=== PATIENT | female | born 1985 | race American Indian/Alaskan Native ===

== ENCOUNTER 2021-07-04 16:14 | Emergency (ER) | payer SELFPAY ==
[2021-07-04] MEDS ORDERED: LORazepam 2 MG TAB PO PRN (19:08)
--- NOTE | 2021-07-04 19:42 | Emergency Department Report ---
ED Psych HPI - General Chief Complaint: Psych Stated Complaint: PSYCH Time Seen by Provider: 07/04/21 18:32 Source: patient, EMS Mode of arrival: Ambulatory Limitations: No Limitations - History of Present Illness Initial Comments: 36-year-old female with a psychiatric history presents to the hospital with psychosis and abnormal behavior. Patient was found outside of a gas station reporting that she has snakes in her pants and therefore took off her pants. She states she has been noncompliant with her medications for at least 3 days. She denies suicidal homicidal ideation at this time. When asked what we can do for her today she asked if we can make her normal. She denies physical complaints - Related Data Home Medications Medication Instructions Recorded Confirmed Last Taken LORazepam [Ativan] 2 mg PO BID PRN 07/04/21 07/04/21 07/02/21 Trazodone HCl 50 mg PO QHS 07/04/21 07/04/21 07/02/21 Trileptal 300 mg PO BID 07/04/21 07/04/21 07/02/21 ZyPREXA 5 mg PO QDAY 07/04/21 07/04/21 07/02/21 ZyPREXA 10 mg PO QHS 07/04/21 07/04/21 07/02/21 Allergies Allergy/AdvReac Type Severity Reaction Status Date / Time No Known Allergies Allergy Verified 07/04/21 16:17 ED Review of Systems ROS: Stated complaint: PSYCH Other details as noted in HPI Comment: All other systems reviewed and negative ED Past Medical Hx - Medications Home Medications: Home Medications Medication Instructions Recorded Confirmed Last Taken Type LORazepam [Ativan] 2 mg PO BID PRN 07/04/21 07/04/21 07/02/21 History Trazodone HCl 50 mg PO QHS 07/04/21 07/04/21 07/02/21 History Trileptal 300 mg PO BID 07/04/21 07/04/21 07/02/21 History ZyPREXA 5 mg PO QDAY 07/04/21 07/04/21 07/02/21 History ZyPREXA 10 mg PO QHS 07/04/21 07/04/21 07/02/21 History ED Physical Exam - General Limitations: No Limitations - Other Other exam information: General: No acute distress Head: Atraumatic Eyes: normal appearance ENT: Moist mucous membranes Neck: Normal appearance, no midline tenderness Chest: Clear to auscultation bilaterally CV: Regular rate and rhythm Abdomen: Soft, normal bowel sounds, nontender, nondistended, no rebound or gu arding Back: Normal inspection Extremity: Normal inspection, full range of motion Neuro: Alert O x 3, no facial asymmetry, speech clear, no gross motor sensory deficit Psych: Poor eye contact, withdrawn, endorses auditory hallucinations Skin: No rash ED Course Vital Signs 07/04/21 07/04/21 16:15 17:23 Temperature 98.1 F Pulse Rate 100 H 78 Respiratory 16 Rate Blood Pressure 160/90 128/72 [Left] O2 Sat by Pulse 98 99 Oximetry ED Medical Decision Making - Lab Data Result diagrams: 07/04/21 19:31 07/04/21 19:31 Lab Results 07/04/21 07/04/21 07/04/21 Range/Units 19:31 19:31 19:31 WBC 7.9 (4.5-11.0) K/mm3 RBC 4.73 (3.65-5.03) M/mm3 Hgb 14.0 (10.1-14.3) gm/dl Hct 41.2 (30.3-42.9) % MCV 87 (79-97) fl MCH 30 (28-32) pg MCHC 34 (30-34) % RDW 13.7 (13.2-15.2) % Plt Count 371 (140-440) K/mm3 Lymph % (Auto) 29.8 (13.4-35.0) % [place] % (Auto) 7.9 H (0.0-7.3) % Eos % (Auto) 0.3 (0.0-4.3) % Baso % (Auto) 0.8 (0.0-1.8) % Lymph # (Auto) 2.4 (1.2-5.4) K/mm3 [place]gs # (Auto) 0.6 (0.0-0.8) K/mm3 Eos # (Auto) 0.0 (0.0-0.4) K/mm3 Baso # (Auto) 0.1 (0.0-0.1) K/mm3 Seg Neutrophils % 61.2 (40.0-70.0) % Seg Neutrophils # 4.8 (1.8-7.7) K/mm3 Sodium 138 (137-145) mmol/L Potassium 4.2 (3.6-5.0) mmol/L Chloride 102.2 (98-107) mmol/L Carbon Dioxide 22 (22-30) mmol/L Anion Gap 18 mmol/L BUN 12 (7-17) mg/dL Creatinine 0.9 (0.6-1.2) mg/dL Estimated GFR > 60 ml/min BUN/Creatinine Ratio 13 % Glucose 98 (65-100) mg/dL Calcium 9.8 (8.4-10.2) mg/dL HCG, Qual (Negative) Salicylates 0.5 L (2.8-20.0) mg/dL Acetaminophen (10.0-30.0) ug/mL Plasma/Serum Alcohol (0-0.07) % 07/04/21 07/04/21 07/04/21 Range/Units 19:31 19:31 19:31 WBC (4.5-11.0) K/mm3 RBC (3.65-5.03) M/mm3 Hgb (10.1-14.3) gm/dl Hct (30.3-42.9) % MCV (79-97) fl MCH (28-32) pg MCHC (30-34) % RDW (13.2-15.2) % Plt Count (140-440) K/mm3 Lymph % (Auto) (13.4-35.0) % [place]gs % (Auto) (0.0-7.3) % Eos % (Auto) (0.0-4.3) % Baso % (Auto) (0.0-1.8) % Lymph # (Auto) (1.2-5.4) K/mm3 Tw[place]gs # (Auto) (0.0-0.8) K/mm3 Eos # (Auto) (0.0-0.4) K/mm3 Baso # (Auto) (0.0-0.1) K/mm3 Seg Neutrophils % (40.0-70.0) % Seg Neutrophils # (1.8-7.7) K/mm3 Sodium (137-145) mmol/L Potassium (3.6-5.0) mmol/L Chloride (98-107) mmol/L Carbon Dioxide (22-30) mmol/L Anion Gap mmol/L BUN (7-17) mg/dL Creatinine (0.6-1.2) mg/dL Estimated GFR ml/min BUN/Creatinine Ratio % Glucose (65-100) mg/dL Calcium (8.4-10.2) mg/dL HCG, Qual Negative (Negative) Salicylates (2.8-20.0) mg/dL Acetaminophen 5.0 L (10.0-30.0) ug/mL Plasma/Serum Alcohol < 0.01 (0-0.07) % - Medical Decision Making 36-year-old female with a psychiatric disorder presents to the hospital complaining of worsening psychosis and medication noncompliance. Patient's medications were reconciled and will be continued until nurse practitioner mental health evaluation tomorrow. 1013 has been signed. Patient medically cleared with UA, UDS, and Covid test pending Critical Care Time: No Critical care attestation.: If time is entered above; I have spent that time in minutes in the direct care of this critically ill patient, excluding procedure time. ED Disposition Clinical Impression: Acute psychosis, Medical clearance for psychiatric admission Disposition: [address] [place] [address] Is pt being admited?: No Condition: Stable Time of Disposition: 20:41
[2021-07-04 19:51] LABS: Basophils # (Auto) 0.1 K/mm3 (0.0-0.1); Basophils % (Auto) 0.8 % (0.0-1.8); Eosinophils % (Auto) 0.3 % (0.0-4.3); Hematocrit 41.2 % (30.3-42.9); Lymphocytes # (Auto) 2.4 K/mm3 (1.2-5.4); Lymphocytes % (Auto) 29.8 % (13.4-35.0); Mean Corpuscular HGB Conc 34 % (30-34); Mean Corpuscular Volume 87 fl (79-97); Monocytes # (Auto) 0.6 K/mm3 (0.0-0.8); Monocytes % (Auto) 7.9 % (0.0-7.3); Platelet Count 371 K/mm3 (140-440); Red Blood Count 4.73 M/mm3 (3.65-5.03); Red Cell Distribution Width 13.7 % (13.2-15.2)
[2021-07-04 20:07] LABS: BUN/Creatinine Ratio 13; Blood Urea Nitrogen 12 mg/dL (7-17); Calcium 9.8 mg/dL (8.4-10.2); Hemolysis Index 13
[2021-07-04] MEDS ORDERED: ZYPREXA PO SCH (22:00)
[2021-07-04] MEDS ORDERED: traZODone 50 MG TAB PO SCH (22:00)
[2021-07-04] MEDS ORDERED: TRAZODONE HCL 50 MG PO SCH (22:00)
[2021-07-04] MEDS ORDERED: TRILEPTAL 300 MG PO SCH (22:00)
[2021-07-04 22:48] LABS: Bacteria,Urine 1+ /HPF (Negative); Bilirubin,Urine NEG (Negative); Blood,Urine SM (Negative); Color,Urine Yellow (Yellow); Mucus,Urine 3+ /HPF; Protein,Urine <15 mg/dL mg/dL (Negative); Urobilinogen,Urine < 2.0 mg/dL (<2.0)
[2021-07-04 22:57] LABS: Benzodiazepines Screen,Urine Negative; Cannabinoid Screen,Urine Negative; Cocaine Screen,Urine Negative; Methadone Screen,Urine Negative; Opiate Screen,Urine Negative
[2021-07-04 23:17] LABS: Amphetamine Screen,Urine Positive
[2021-07-05] MEDS: OXcarbazepine 300 MG TAB PO SCH ×2 (01:16→10:26)
[2021-07-05] MEDS ORDERED: ZYPREXA 5 MG PO SCH (10:00)
--- NOTE | 2021-07-05 10:27 | Consultation ---
History of Present Illness - Reason for Consult Consult date: 07/05/21 Reason for consult: depression - History of Present Psychiatric Illness HPI: 36-year-old female with a psychiatric history presents to the hospital with psychosis and abnormal behavior. Patient was found outside of a gas station reporting that she has snakes in her pants and therefore took off her pants. She states she has been noncompliant with her medications for at least 3 days. She denies suicidal homicidal ideation at this time. When asked what we can do for her today she asked if we can make her normal. She denies physical complaints The patient was seen today. She is calm and cooperative. The patient says she is depressed and has a lot going on. She says she has a history of bipolar and schizophrenia. She says she's been off her meds for about two days because she left them at her mom's house. She says "but I have them, I just have to go get them." She denies SI/HI. She also denies any fear of endangerment. The patient says she sees [facility] for her psychiatric needs. She says she takes Trileptal, zyprexa, trazodone and ativan. The patient also admits to using Methamphetamines about 3 or 4 days ago. PAST PSYCHIATRIC HISTORY: Diagnoses: Bipolar, schizophrenia Suicide attempts or Self-harm behavior: Denies Prior psychiatric hospitalizations: Yes Substance Abuse history: Methamphetamines Previous psychiatric medications tried: Ativan, trazodone, Trileptal, Zyprexa Outpatient treatment: Denies PAST MEDICAL HISTORY: None reported or document Family Psychiatric History: None reported or documented SOCIAL HISTORY Marital Status: Living Arrangements: alone Employment Status: Unemployed Access to guns/weapons: Denies Education: History of Abuse: Denies Legal History: Denies REVIEW OF SYSTEMS Constitutional: Negative for weight loss ENT: Negative for stridor Respiratory: Negative for cough or hemoptysis All other systems reviewed and are negative MENTAL STATUS EXAMINATION General Appearance and Behavior: Age appropriate, good hygiene, wearing appropriate clothes. calm, cooperative Cooperation: cooperative Psychomotor Behavior: Psychomotor normal Mood: depressed Affect and affective range: congruent with stated mood Thought Process: Goal directed Thought Content: None Speech: Normal volume, Regular rate and rhythm Suicidal Ideation: Denies Homicidal Ideation: Denies Hallucinations: Denies Delusions: None elicited Impulse Control: Limited Insight and Judgment: limited Memory: limited Attention: Attentive Orientation: alert and oriented Assessment and Plan (1) Bipolar Disorder (2) Methamphetamine Dependence Treatment Plan Continue home medications Sitter: refer to medical Medical: per primary Disposition: Do not recommend acute psychiatric inpatient treatment. The patient understands that if SI/HI arise she is to seek immediate assistance She is to abstain from all illicit drug use The irrigation tax assessor collector to give the patient outpatient resources including drug rehab Will sign off. Thanks Case staffed with Dr. Oakley Medications and Allergies Allergies Allergy/AdvReac Type Severity Reaction Status Date / Time No Known Allergies Allergy Verified 07/04/21 16:17 Home Medications Medication Instructions Recorded Confirmed Last Taken Type LORazepam [Ativan] 2 mg PO BID PRN 07/04/21 07/04/21 07/02/21 History Trazodone HCl 50 mg PO QHS 07/04/21 07/04/21 07/02/21 History Trileptal 300 mg PO BID 07/04/21 07/04/21 07/02/21 History ZyPREXA 5 mg PO QDAY 07/04/21 07/04/21 07/02/21 History ZyPREXA 10 mg PO QHS 07/04/21 07/04/21 07/02/21 History Active Meds: Active Medications Lorazepam (Lorazepam 2 Mg Tab) 2 mg PO BID PRN PRN Reason: Anxiety Olanzapine (Olanzapine 5 Mg Tab) 5 mg PO DAILY [facility] Olanzapine (Olanzapine 10 Mg Tab) 10 mg PO QHS [facility] Last Admin: 07/05/21 01:16 Dose: Not Given Oxcarbazepine (Oxcarbazepine 300 Mg Tab) 300 mg PO BID [facility] Last Admin: 07/05/21 01:16 Dose: Not Given Trazodone HCl (Trazodone 50 Mg Tab) 50 mg PO QHS [facility] Last Admin: 07/05/21 01:16 Dose: Not Given Mental Status Exam - Vital signs Last Vital Signs Temp 97.5 F L 07/05/21 02:36 Pulse 71 07/05/21 02:36 Resp 18 07/05/21 02:36 BP 108/76 07/05/21 02:36 Pulse Ox 98 07/05/21 02:36 Results Result Diagrams: 07/04/21 19:31 04/13/22 19:31 Abnormal lab results 07/04/21 07/04/21 07/04/21 Range/Units 19:31 19:31 19:31 [place] % (Auto) 7.9 H (0.0-7.3) % Salicylates 0.5 L (2.8-20.0) mg/dL Acetaminophen 5.0 L (10.0-30.0) ug/mL All other labs normal.
[2021-07-05 12:24] VITALS: BP 120/77
== END 2021-07-05 15:26 ==
LOC: EDSEX → EDBD → EEVIPCON 16:14 → ED 16:14
DX: F29 Unspecified psychosis not due to a substance or known physiological condition (principal); Z13.30 Encounter for screening examination for mental health and behavioral disorders, unspecified; Z20.822 Contact with and (suspected) exposure to COVID-19; Z79.899 Other long term (current) drug therapy
CPT/HCPCS: 36415; 80048; 80307; 81001; 84703; 85025; 99284; U0003; 80320; G0480